=== PATIENT | female | born 1970 | race Caucasian/White ===

== ENCOUNTER 2023-02-13 13:17 | Emergency (ER) | payer OTHER, SELFPAY ==
[2023-02-13] VITALS (12 sets, daily range): BP systolic 118–143; BP diastolic 75–92; PULSE 62–84; RESP 13–30; TEMP 37; O2SAT 99–100; BMI 22.4
--- NOTE | 2023-02-13 13:29 | DI.RAD.S_ITS ---
PROCEDURE: XR CHEST 1V INDICATIONS: chest pain TECHNIQUE: One view of the chest was acquired. COMPARISON: None. FINDINGS: Surgical changes and devices: None. Lungs and pleura: Lungs are clear. No pleural effusions or pneumothorax. Mediastinum: Mediastinal contours appear normal. Heart size is normal. Bones and chest wall: No suspicious bony lesions. Overlying soft tissues appear unremarkable. IMPRESSION: Portable chest within normal limits for age. Dictated by: Adrián Guerrero M.D. on 02/13/2023 at 14:49 Approved by: Adrián Guerrero M.D. on 02/13/2023 at 14:50
--- NOTE | 2023-02-13 13:49 | ED_ITS ---
HPI - Chest Pain General Chief Complaint: Chest Pain Stated Complaint: LT shoulder throbbing pain T-1/chest pain Time Seen by Provider: 02/13/23 13:43 Source: patient Mode of arrival: Ambulatory Limitations: no limitations History of Present Illness HPI narrative: Patient here with complaints of left shoulder throbbing. She states this started last night and lasted about 3 hours. There was nothing reproducible about it. No discomfort or triggers with movement of the shoulders or neck. No numbness or tingling. She took her 's Flexeril and was able sleep through the night. Awoke this morning without any discomfort but was feeling tired she has never taken Flexeril before. Patient went to work this morning at 7:30 a.m.. She works at the school. At around 10:00 a.m. she felt a throbbing pain discomfort again. It has been coming and going since then. No absolutely chest pain or back pain. It is in the shoulder/deltoid area. She and her do hiking and workout at least 3 times a week. She is not not not experienced any chest pain during these events recently. Patient denies any history of hypertension hyperlipidemia. Does not smoke. No primary family history of heart attack or coronary disease. Father had history of heart valve disease but no coronary artery disease. Related Data Home Medications Medication Instructions Recorded Confirmed albuterol sulfate 90 mcg/actuation 1 inh inhalation ONCE 08/20/21 08/20/21 aerosol inhaler fluticasone 250 mcg-salmeterol 50 1 inh inhalation BID 08/20/21 08/20/21 mcg/dose blistr powdr for inhalation (Advair Diskus) methylphenidate PO 08/20/21 08/20/21 Allergies Allergy/AdvReac Type Severity Reaction Status Date / Time pollen extracts Allergy Verified 02/13/23 13:26 Review of Systems Review of Systems Narrative: GENERAL: negative chills, fatigue, malaise, fever, sweats. HEENT: negative sinus pain, ear pain, sore throat RESPIRATORY: negative dyspnea, cough CARDIOVASCULAR: negative chest pain, palpitations GASTROINTESTINAL: negative nausea, vomiting, abdominal pain : negative dysuria, frequency, hematuria MUSCULOSKELETAL: Positive muscle or bony pain, shoulder SKIN: negative rash, skin lesions NEUROLOGIC: negative weakness, numbness ROS Unobtainable: All systems reviewed & are unremarkable except as noted in HPI and below Patient History Medical History Asthma Allergies ADHD Surgical History Anesthesia History of breast augmentation (~11/2002) Family History Father History of heart disease Brother Mental health problem Grandfather Suicide Social History Smoking Status: Never smoker Smoking Status: Never smoker alcohol intake frequency: 0-2 drinks per day Alcohol type: wine Exam Narrative Exam Narrative: GENERAL: in no distress, not toxic not dyspneic HEAD: Normocephalic. EYES: Pupils equal round ENT: Mucous membranes moist. NECK: Trachea midline. CARDIOVASCULAR: Regular rate and rhythm, chest is nontender. Strong bilateral carotid radial pulses RESPIRATORY: Clear to auscultation. Breath sounds equal bilaterally. No wheezes, rales, or rhonchi. GASTROINTESTINAL: Abdomen soft, non-tender EXTREMITIES: No gross deformities. Left shoulder nontender. Able to bring hand above the head behind the back and across midline touch right shoulder without any discomfort or pain. BACK: No flank tenderness. NEURO: AOx4. SKIN: Warm and dry PSYCH: Not anxious, is cooperative Initial Vital Signs Initial Vital Signs: Vital Signs Temperature 98.6 F 02/13/23 13:20 Pulse Rate 83 02/13/23 13:20 Respiratory Rate 18 02/13/23 13:20 Blood Pressure 143/75 H 02/13/23 13:20 Pulse Oximetry 100 02/13/23 13:20 Oxygen Delivery Method Room Air 02/13/23 13:20 Scores HEART Score Heart Score history: Slightly Suspicious Heart Score EKG: Normal Heart Score Age: 45-64 years old Heart Score risk factors: 1-2 risk factors Heart Score troponin: < or = to normal limit Heart Score Total: 2 Course Orders Ordered: ED Orders 02/13/23 13:29 XR chest 1V Stat EKG-12 Lead Stat 02/13/23 13:30 Complete Blood Count AUTO DIFF Stat Comprehensive Metabolic Panel Stat Lipase Stat Magnesium Stat PTT Partial Thromboplastin Pedrito Stat Prothrombin Time INR Stat Troponin & CK Cardiac Panel Stat 02/13/23 16:29 EKG-12 Lead Stat 02/13/23 16:45 Trop I [Troponin I] Stat Discontinued Medications Aspirin (Aspirin 81 Mg Chew Tab) 324 mg PO NOW ONE Stop: 02/13/23 13:30 Last Admin: 02/13/23 15:02 Dose: 324 mg Documented By: DORIS Ketorolac Tromethamine (Ketorolac 30 Mg/Ml Vial) 15 mg IV NOW ONE Stop: 02/13/23 13:54 Last Admin: 02/13/23 16:58 Dose: Not Given Documented By: INDIGO Vital Signs Vital signs: Vital Signs - 8 hr 02/13/23 13:20 02/13/23 14:16 02/13/23 14:30 Temperature 98.6 F Pulse Rate 83 80 76 Respiratory Rate 18 13 Blood Pressure 143/75 H Pulse Oximetry 100 100 100 Oxygen Delivery Method Room Air 02/13/23 15:00 02/13/23 15:03 02/13/23 15:03 Temperature Pulse Rate 74 84 Respiratory Rate 20 30 H Blood Pressure 143/80 H Pulse Oximetry 100 99 Oxygen Delivery Method 02/13/23 15:09 02/13/23 15:09 02/13/23 15:30 Temperature Pulse Rate 78 Respiratory Rate 13 Blood Pressure 138/86 129/80 Pulse Oximetry 100 Oxygen Delivery Method 02/13/23 15:30 02/13/23 16:00 02/13/23 16:00 Temperature Pulse Rate 62 69 Respiratory Rate 14 17 Blood Pressure 118/76 Pulse Oximetry 100 100 Oxygen Delivery Method Room Air 02/13/23 16:30 02/13/23 16:30 02/13/23 17:00 Temperature Pulse Rate 80 74 Respiratory Rate 21 Blood Pressure 132/92 H Pulse Oximetry 100 100 Oxygen Delivery Method 02/13/23 17:00 02/13/23 17:30 02/13/23 17:30 Temperature Pulse Rate 79 Respiratory Rate 28 H Blood Pressure 125/81 129/89 Pulse Oximetry 100 Oxygen Delivery Method 02/13/23 18:00 02/13/23 18:00 Temperature Pulse Rate 73 Respiratory Rate 25 H Blood Pressure 136/84 Pulse Oximetry 100 Oxygen Delivery Method MDM - Chest Pain Lab Data 02/13/23 13:30 02/13/23 13:30 Labs: Lab Results 02/13/23 02/13/23 Range/Units 13:30 16:45 WBC 5.9 (4.5-11.0) X10^3/uL RBC 4.77 (4.0-5.2) X10^6/uL Hgb 15.5 (12.0-16.0) g/dL Hct 43.7 (36-46) % MCV 91.7 (80-100) fL MCH 32.5 (26-34) PG MCHC 35.4 (30-36) % RDW 11.8 (11.6-14.8) % Plt Count 243 (150-400) X10^3/uL Neut % (Auto) 68.1 (50-75) % Lymph % (Auto) 23.0 L (25-40) % Cannon % (Auto) 6.3 (3-14) % Eos % (Auto) 1.7 L (2-4) % Baso % (Auto) 0.9 (0-2) % Neut # (Auto) 4000 (2819-0535) /uL Lymph # (Auto) 1400 (9321-0569) /uL Cannon # (Auto) 400 (0-900) /uL Eos # (Auto) 100 (0-450) /uL Baso # (Auto) 100 (0-100) /uL PT 11.3 (10.1-12.7) SECONDS INR 1.0 (0.9-1.3) APTT 37 H (26-36) SECONDS Sodium 140 (137-145) mmol/L Potassium 3.8 (3.4-5.1) mmol/L Chloride 103 (98-107) mmol/L Carbon Dioxide 28 (22-32) mmol/L BUN 17 (7-17) mg/dL Creatinine 0.87 (0.52-1.04) mg/dL Estimated GFR > 60 (>60) mL/min BUN/Creatinine Ratio 19.5 (6-22) Glucose 96 (70-100) mg/dL Calcium 10.0 (8.4-10.2) mg/dL Magnesium 2.1 (1.6-2.3) mg/dL Total Bilirubin 1.0 (0.2-1.3) mg/dL AST 35 (14-36) IU/L ALT 22 (<35) IU/L Alkaline Phosphatase 72 (38-126) U/L Total Creatine Kinase 66 (30-135) U/L Troponin I < 0.012 < 0.012 (0.01-0.034) ng/mL Total Protein 8.3 H (6.3-8.2) g/dL Albumin 4.7 (3.5-5.0) g/dL Globulin 3.6 (1.7-4.1) g/dL Albumin/Globulin Ratio 1.3 (1.0-2.8) Lipase 60 (23-300) U/L Imaging Data Chest x-ray: Radiologist's Impression: [address] [address] XRay Report Signed Patient: Micki Chambers MR#: [id number] : 1970 Acct:[id number] Age/Sex: 52 / F Date of Service: 02/13/23 Loc: ED Accession Number: [id number] Procedure: XR chest 1V Ordering Provider: Hieu Zapata MD PROCEDURE: XR CHEST 1V INDICATIONS: chest pain TECHNIQUE: One view of the chest was acquired. COMPARISON: None. FINDINGS: Surgical changes and devices: None. Lungs and pleura: Lungs are clear. No pleural effusions or pneumothorax. Mediastinum: Mediastinal contours appear normal. Heart size is normal. Bones and chest wall: No suspicious bony lesions. Overlying soft tissues appear unremarkable. IMPRESSION: Portable chest within normal limits for age. Dictated by: Adrián Guerrero M.D. on 02/13/2023 at 14:49 Approved by: Adrián Guerrero M.D. on 02/13/2023 at 14:50 [facility] Narrative Medical decision making narrative: Patient here with complaints of left shoulder throbbing. She states this started last night and lasted about 3 hours. There was nothing reproducible about it. No discomfort or triggers with movement of the shoulders or neck. No numbness or tingling. She took her 's Flexeril and was able sleep through the night. Awoke this morning without any discomfort but was feeling tired she has never taken Flexeril before. Patient went to work this morning at 7:30 a.m.. She works at the school. At around 10:00 a.m. she felt a throbbing pain discomfort again. It has been coming and going since then. No absolutely chest pain or back pain. It is in the shoulder/deltoid area. She and her do hiking and workout at least 3 times a week. She is not not not experienced any chest pain during these events recently. Patient denies any history of hypertension hyperlipidemia. Does not smoke. No primary family history of heart attack or coronary disease. Father had history of heart valve disease but no coronary artery disease. After history and exam CBC CMP EKG troponin chest x-ray aspirin Toradol MDM CC: Left shoulder pain Complicating co-morbidities: None Data collected from: Patient and Medical records reviewed: No recent visit for this complaint Differential considered: Includes but not limited to atypical chest pain cervical radiculopathy STEMI non-STEMI angina, shoulder strain Exam documented above, pertinent findings include: Nontender chest and shoulder Lab Test results independently reviewed as above. Pertinent findings: Troponin less than 0.012 x 2 WBC 5.9 hemoglobin 15.5 INR 1.0 sodium 140 potassium 3.8 BUN 17 creatinine 0.87 Independently reviewed EKG normal sinus rhythm rate 76, no ST elevation or depression Imaging studies independently reviewed: Chest x-ray no acute finding Consultations: 5:30 p.m.. Spoke with cardiology [facility] on-call for us, Dr. Up, reviewed exam and laboratory studies and findings, at this time he agrees patient can follow up outpatient for stress test. No indication for admission today. Treatments: Aspirin Re-evaluations: No pain no shoulder pain no chest pain at time of discharge. Reviewed results with patient and . Not toxic at discharge. Return precautions reviewed with them. Reviewed with him my discussion with Dr. Up as well. They desire discharge home. Discussion: Appropriate for discharge home. Exam and laboratory studies imaging are reassuring. Troponin x2 are negative. Patient has low heart score. Patient essentially has been exercising and running and jogging with and doing drills without any difficulty or chest pain or shortness of breath. Return precautions reviewed with them. They desire discharge home. No D-dimer indicated at this time. Likely not aortic dissection or aortic injury. Clinically not PE. No x-ray of shoulder indicated. No tenderness on the shoulder or on range of motion. Diagnosis: Atypical chest pain Discharge Plan Departure Patient Disposition: Home Clinical Impression: Atypical chest pain Instructions: DI for Atypical Chest Pain Activity Restrictions/Additional Instructions: You will need to see family doctor for referral/schedule outpatient stress test. Call on Thursday. Call provided primary care referral phone number to establish family doctor. Call [phone]. Your laboratory studies and exam are reassuring. We have reviewed with cardiology services. At this time appropriate for follow up with primary care services for scheduling stress test. Return if worse if any questions or concerns. Prescriptions: No Action methylphenidate PO fluticasone propion-salmeterol [Advair Diskus] 250-50 mcg/dose blister with device 1 inh inhalation BID albuterol sulfate 90 mcg/actuation HFA aerosol inhaler 1 inh inhalation ONCE Referrals: Miscellaneous,[facility] [Primary Care Provider] - Stand Alone Forms: Patient Portal/API
[2023-02-13 13:55] LABS: Prothrombin Time 11.3 SECONDS (10.1-12.7)
[2023-02-13 13:57] LABS: PTT Partial Thromboplastin Tim 37 SECONDS (26-36)
[2023-02-13 13:59] LABS: Alanine Aminotransferase 22 IU/L (<35); Albumin 4.7 g/dL (3.5-5.0); Albumin Globulin Ratio 1.3 (1.0-2.8); Alkaline Phosphatase 72 U/L (38-126); Aspartate Aminotransferase 35 IU/L (14-36); BUN Creatinine Ratio 19.5 (6-22); Blood Urea Nitrogen 17 mg/dL (7-17); Carbon Dioxide 28 mmol/L (22-32); Chloride 103 mmol/L (98-107); Creatine Kinase 66 U/L (30-135); Estimated Glomerular Filt Rate > 60 mL/min (>60); Globulin 3.6 g/dL (1.7-4.1); Glucose 96 mg/dL (70-100); HEMOLYSIS 52 (0-50); Lipase 60 U/L (23-300); Magnesium 2.1 mg/dL (1.6-2.3); Potassium 3.8 mmol/L (3.4-5.1); Sodium 140 mmol/L (137-145); Total Protein 8.3 g/dL (6.3-8.2)
[2023-02-13 14:00] LABS: Add Manual Diff / Slide Review NO; Basophils Absolute Auto 100 /uL (0-100); Basophils Percent Auto 0.9 % (0-2); Eosinophils Absolute Auto 100 /uL (0-450); Eosinophils Percent Auto 1.7 % (2-4); Hematocrit 43.7 % (36-46); Hemoglobin 15.5 g/dL (12.0-16.0); Lymphocytes Absolute Auto 1400 /uL (1100-4500); Mean Corpuscular HGB Conc 35.4 % (30-36); Mean Corpuscular Hemoglobin 32.5 PG (26-34); Mean Corpuscular Volume 91.7 fL (80-100); Monocytes Absolute Auto 400 /uL (0-900); Monocytes Percent Auto 6.3 % (3-14); Neutrophils Absolute Auto 4000 /uL (1500-7000); Neutrophils Percent Auto 68.1 % (50-75); Platelet Count 243 X10^3/uL (150-400); Red Blood Cell Count 4.77 X10^6/uL (4.0-5.2); Red Cell Distribution Width 11.8 % (11.6-14.8); White Blood Cell Count 5.9 X10^3/uL (4.5-11.0)
[2023-02-13 14:11] LABS: Troponin I < 0.012 ng/mL (0.01-0.034)
[2023-02-13] MEDS: ASPIRIN 81 MG CHEW TAB 324 MG PO (15:02)
--- NOTE | 2023-02-13 15:06 | PC.NURSE ---
pt declined tordol at this time, stating she is not hurting currently.
[2023-02-13 17:18] LABS: Troponin I < 0.012 ng/mL (0.01-0.034)
== END 2023-02-13 18:12 | disposition home or self-care (01) ==
PROVIDERS: Emergency Provider Emergency Medicine
DX: R07.89 Other chest pain (principal)
CPT/HCPCS: 36415; 71045; 80053; 82550; 83690; 83735; 84484; 85025; 85610; 85730; 93005; 99284

== ENCOUNTER → 2024-09-24 13:10 | Outpatient (CLI) | payer OTHER, SELFPAY | LOC: LAB 13:11 | PROVIDERS: Visit Provider Nurse Practitioner Family | DX: L08.9 Local infection of the skin and subcutaneous tissue, unspecified (principal) | CPT/HCPCS: 87070; 87075; 87077; 87147; 87205 ==